=== PATIENT | female | born 1990 | race African-American/Black ===

== ENCOUNTER 2022-04-19 14:14 | Emergency (ER) | payer OTHER, SELFPAY ==
[2022-04-20] MEDS ORDERED: Lidocaine 1% PF 5 ML VIAL ONE (06:05)
== END 2022-04-19 16:12 | disposition left against medical advice (07) ==
LOC: EEVIPCON 14:14 → ERS 14:14
DX: M54.9 Dorsalgia, unspecified (principal)
CPT/HCPCS: 99283